=== PATIENT | male | born 1995 | race Caucasian/White ===

== ENCOUNTER 2019-03-06 10:41 | Emergency (ER) | payer OTHER ==
[~2019-03-06] VITALS: Ht 170.2 cm; Wt 59.0 kg
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
--- NOTE | 2019-03-06 11:30 | Diagnostic Imaging Report ---
INDICATION: Patient fell off a horse yesterday, landed on shoulder. EXAMINATION: Left shoulder dated 03/06/2019 FINDINGS: Three views of the shoulder There is a fracture involving the distal aspect of the clavicle. This is fairly well aligned. It may extend into the adjacent acromioclavicular joint space. No robin dislocation is seen. Mild soft tissue prominence about the fracture site is noted. IMPRESSION: 1. Nondisplaced distal clavicular fracture. Dictated by: Dictated on workstation # [id number]
[2019-03-06 11:45] VITALS: BP 115/70
== END 2019-03-06 11:45 | disposition home or self-care (01) ==
LOC: ER FS 10:43
DX: S42.035A Nondisplaced fracture of lateral end of left clavicle, initial encounter for closed fracture (principal); Z79.82 Long term (current) use of aspirin; Z95.3 Presence of xenogenic heart valve; V80.018A Animal-rider injured by fall from or being thrown from other animal in noncollision accident, initial encounter
CPT/HCPCS: 73030; 99283